=== PATIENT | male | born 1980 | race Caucasian/White ===

== ENCOUNTER 2019-12-14 20:52 | Emergency (ER) | payer OTHER ==
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
[2019-12-14] MEDS ORDERED: Ketorolac *IM* INJ* 60 MG/2 ML VIAL IM ONE (21:26)
[2019-12-15] MEDS ORDERED: oxyCODONE TAB* 5 MG TAB PO ONE (00:36)
[2019-12-15 01:15] VITALS: BP 122/83
== END 2019-12-15 01:05 ==
LOC: ED 20:52
DX: S62.327A Displaced fracture of shaft of fifth metacarpal bone, left hand, initial encounter for closed fracture (principal); S80.02XA Contusion of left knee, initial encounter; S80.01XA Contusion of right knee, initial encounter; S60.222A Contusion of left hand, initial encounter; S60.221A Contusion of right hand, initial encounter; S00.33XA Contusion of nose, initial encounter; S40.011A Contusion of right shoulder, initial encounter; Y09 Assault by unspecified means; Y93.89 Activity, other specified; Y92.149 Unspecified place in prison as the place of occurrence of the external cause; M17.11 Unilateral primary osteoarthritis, right knee; R51 Headache
CPT/HCPCS: 70486; 96372; 99283; A9270-GY; J1885